=== PATIENT | female | born 1990 | race Caucasian/White ===

== ENCOUNTER 2023-10-29 11:49 | Outpatient (CLI) | payer OTHER, SELFPAY ==
[2023-10-30 00:44] LABS: Beta HCG Quantitative 5.71 mIU/ML
== END 2023-10-29 11:50 | disposition home or self-care (01) ==
PROVIDERS: Visit Provider Obstetrics & Gynecology
DX: N92.6 Irregular menstruation, unspecified (principal)
CPT/HCPCS: 36415; 84702

== ENCOUNTER 2023-10-31 09:51 | Outpatient (CLI) | payer OTHER, SELFPAY ==
[2023-10-31 11:06] LABS: Beta HCG Quantitative < 2.39 mIU/ML
== END 2023-10-31 09:52 | disposition home or self-care (01) ==
LOC: ANHLAB 09:53
PROVIDERS: Visit Provider Obstetrics & Gynecology
DX: N92.6 Irregular menstruation, unspecified (principal)
CPT/HCPCS: 36415; 84702

== ENCOUNTER 2024-05-27 10:17 | Outpatient (CLI) | payer OTHER, SELFPAY ==
[2024-05-27 11:23] LABS: Carcinoembryonic Antigen 0.9 ng/mL (0.0-3.0)
[2024-05-27 11:33] LABS: HIV 1/2 Ab P24 Ag Result Negative (Negative)
[2024-05-27 12:58] LABS: Hepatitis B Surface Antigen Negative (Negative); Rubella IgG Antibody 43.8 IU/ML
[2024-05-27 19:20] LABS: Rapid Plasma Reagin Non-Reactive (NonReactive)
== END 2024-05-27 10:18 | disposition home or self-care (01) ==
LOC: ANHLAB 10:17
PROVIDERS: Visit Provider Obstetrics & Gynecology
DX: N91.2 Amenorrhea, unspecified (principal); Z34.81 Encounter for supervision of other normal pregnancy, first trimester
CPT/HCPCS: 36415; 82378; 86592; 86703; 86747; 86762; 86787; 86850; 86900; 86901; 87077; 87086; 87186; 87340; G0432

== ENCOUNTER 2024-07-25 06:53 | Outpatient (CLI) | payer OTHER, SELFPAY ==
[2024-07-25 19:44] LABS: Basophils Absolute Auto 0.1 K/mm3 (0.0-0.1); Basophils Percent Auto 0.9 % (0.2-1.2); Eosinophils Absolute Auto 0.3 K/mm3 (0-0.3); Hematocrit 34.6 % (37.0-47.0); Hemoglobin 11.2 g/dL (12.0-15.0); Immature Granulocyte Absolute 0.04 K/mm3 (0.00-0.031); Immature Granulocyte Percent A 0.5 % (0-0.5); Lymphocytes Absolute Auto 1.35 K/mm3 (0.9-3.2); Lymphocytes Percent Auto 15.6 % (18.3-44.2); Mean Corpuscular HGB Conc 32.4 g/dl (32-36); Mean Corpuscular Hemoglobin 31.8 pg (26-34); Mean Corpuscular Volume 98.3 fl (80-100); Monocytes Absolute Auto 0.7 K/mm3 (0.1-0.6); Monocytes Percent Auto 8.2 % (2.6-8.5); Neutrophils Absolute Auto 6.2 K/mm3 (1.3-6.7); Neutrophils Percent Auto 71.8 % (45.5-73.1); Platelet Count Result 172 k/mm3 (150-375); Red Blood Count 3.52 M/mm3 (4.2-5.4); Red Cell Distribution Width 13.7 % (11.5-14.5); White Blood Count 8.7 K/mm3 (4.5-10.0)
[2024-07-25 20:31] LABS: Glucose 1 Hour PP 50gm Dose 81 mg/dL
[2024-07-25 21:15] LABS: HIV 1/2 Ab P24 Ag Result Negative (Negative)
[2024-07-26 13:28] LABS: RPR Screen NON-REACTIVE (NON-REACTIVE)
== END 2024-07-25 06:54 | disposition home or self-care (01) ==
LOC: ANHBWCLAB 06:55
PROVIDERS: Visit Provider Obstetrics & Gynecology
DX: Z34.90 Encounter for supervision of normal pregnancy, unspecified, unspecified trimester (principal)
CPT/HCPCS: 36415; 82947; 85025; 86592; 86703; G0432

== ENCOUNTER 2024-09-21 19:14 | Emergency (ER) | payer OTHER, SELFPAY ==
--- NOTE | ~2024-09-21 | US_ITS ---
BILATERAL LOWER EXTREMITY VENOUS ULTRASOUND Ordering provider: Mia Guzman PA-C History: . edema, . Comparison: None. FINDINGS: RIGHT LOWER EXTREMITY VEINS: --COMMON FEMORAL: Patent and free of thrombus. Normal compressibility, phasic flow and augmentation. --PROXIMAL SUPERFICIAL FEMORAL: Patent and free of thrombus. Normal compressibility, phasic flow and augmentation. --DISTAL SUPERFICIAL FEMORAL: Patent and free of thrombus. Normal compressibility, phasic flow and au gmentation. --POPLITEAL: Patent and free of thrombus. Normal compressibility, phasic flow and augmentation. --POSTERIOR TIBIAL: Patent and free of thrombus. Normal compressibility, phasic flow and augmentation . LEFT LOWER EXTREMITY VEINS: --COMMON FEMORAL: Patent and free of thrombus. Normal compressibility, phasic flow and augmentation. --PROXIMAL SUPERFICIAL FEMORAL: Patent and free of thrombus. Normal compressibility, phasic flow and augmentation. --DISTAL SUPERFICIAL FEMORAL: Patent and free of thrombus. Normal compressibility, phasic flow and au gmentation. --POPLITEAL: Patent and free of thrombus. Normal compressibility, phasic flow and augmentation. --POSTERIOR TIBIAL: Patent and free of thrombus. Normal compressibility, phasic flow and augmentation . IMPRESSION: Negative bilateral lower extremity venous US. No deep vein thrombosis. Reviewed, dictated and finalized at location A.
[2024-09-21 19:16] VITALS: BP 133/87; PULSE 84; RESP 18; TEMP 36.6; O2SAT 99
--- OUTSIDE RECORDS SUMMARY | 2024-09-21 19:16 | XMS_ITS | Encounter Summary ---
Author Organization [employer] Address 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
--- OUTSIDE RECORDS SUMMARY | 2024-09-21 19:16 | XMS_ITS | Encounter Summary ---
Author Organization [employer] Address [address] [place] [address] Care Team Providers Care Lock And Dam Equipment Repairer Name Role Phone Nallely Echavarria MD Primary Care Provider +1- [phone] Encounter Details Date Type Department Care Team (Latest Contact Info) Description 06/20/1999 Outpatient Historical [facility] Kal Sampson MD [address] [place] [phone] Closed fracture of olecranon process of ulna (Primary Dx) Social History Tobacco Use Types Packs/Day Years Used Date Smoking Tobacco: Never Assessed Comments Unknown Sex and Gender Information Value Date Recorded Sex Assigned at Not on file Legal Sex Female 4:47 AM OPERATIONS MANAGER Gender Identity Not on file Sexual Orientation Not on file documented as of this encounter Plan of Treatment Not on file documented as of this encounter Visit Diagnoses Diagnosis Closed fracture of olecranon process of ulna- Primary documented in this encounter Care Teams Lock And Dam Equipment Repairer Relationship Specialty Start Date End Date Nallely Echavarria MD PCP - General Family Practice 02/26/19 documented as of this encounter
--- OUTSIDE RECORDS SUMMARY | 2024-09-21 19:16 | XMS_ITS | Clinical Summary ---
Author Organization [facility] Medical Office [facility] Address [address] [place] [address] Care Team Providers Care Cooling Pan Tender Name Role Phone Nallely Echavarria MD Primary Care Provider +1- [phone] Allergies Active Allergy Reactions Criticality Noted Date Comments Amoxicillin-Pot Clavulanate Nausea and Vomiting Medium 08/26/2011 Medications multivit [id number] 6-dha (Prenate DHA) 28 mg iron-1 mg -300 mg Capsule Take by mouth. Active Breast Pump DeviceIndicatio ns:Lactating mother Double electric breast pump. TEJAS 04/17/21. To use indefinitely, as long as . ICD-10 Z39.1 1 Device 01/01/2021 Active docusate sodium (COLACE) 100 mg capsule Take 1 Capsule (100 mg) by mouth 2 times daily. 60 Capsule 2 04/13/2021 9:09 AM SENIOR PHARMACY TECHNICIAN 04/12/2021 Active Active Problems Problem Noted Date Diagnosed Date Encounter for elective induction of labor 2020 Tobacco use 01/22/2016 Abnormal Pap smear of cervix 03/28/2015 Overview (03/28/2015): 02/2015: LGSIL IUD (intrauterine device) in place 03/23/2015 Overview (03/23/2015): Mirena placed 03/23/2015 Acute nonintractable headache Resolved Problems Problem Noted Date Diagnosed Date Resolved Date Supervision of other normal 06/26/2014 03/21/2015 Acalculous cholecystitis 08/28/2011 Tonsillitis 08/07/2011 09/17/2011 Assessment & Plan (08/07/2011 1:15 PM CDT): DDx: Bacterial vs viral. No evidence of peritonsillar abscess on exam. Discussed symptomatic treatment for acute pharyngitis: - Encourage rest and fluids (try cool and soft, foods and drinks). - Salt water gargle, throat lozenges, chloraseptic spray prn. - Acetaminophen (Tylenol) or ibuprofen (Motrin, Advil) for fever or discomfort. - Place a vaporizer or humidifier in [facility]'s room (such as the [employer] steam vaporizer). - Elevate the head of Ruth's bed by placing an extra pillow or two under her head. - Ruth should blow her nose frequently to decrease post-nasal drainage. - Household members should avoid sharing cups and eating utensils and wash hands frequently. - Trial of Claritin D 12 hour. A rapid strep test was normal (faint positive only) at [facility]. A throat culture was sent to the [facility] lab for verification. Call for persistent fever, worsening odynophagia/difficulty swallowing fluids or no improvement on antibiotics. Consider EBV titers, CMV titers, mumps titers, ASO, CBC with diff and CMP if persistent symptoms. Nasal congestion with rhinorrhea 08/07/2011 09/17/2011 Assessment & Plan (08/07/2011 11:53 AM CDT): Trial of Claritin D 12 hour. Left acute otitis media 08/07/201108/24 Assessment & Plan (08/07/2011 12:10 PM CDT): Discussed treatment for otitis media or middle ear infection : - Complete all antibiotics as prescribed. - Acetaminophen/ibuprofen prn fever or discomfort (only acetaminophen if less than 6 months old). - Analgesic ear drops (Auralgan otic) as directed (except if ear drainage or tympanostomy tubes present). Medication intolerance 08/07/201101/21 Overview (08/07/2011): 08/07/11 Augmentin intolerance (see ED note). Acute pharyngitis 07/22/2011 08/07/2011 Assessment & Plan (07/22/2011 5:40 PM SENIOR PHARMACY TECHNICIAN): Discussed symptomatic treatment for acute pharyngitis: - Encourage rest and fluids (try cool and soft, foods and drinks). - Salt water gargle, throat lozenges, chloraseptic spray prn. - Acetaminophen (Tylenol) or ibuprofen (Motrin, Advil) for fever or discomfort. - Place a vaporizer or humidifier in Ruth's room (such as the [employer] steam vaporizer). - Elevate the head of Ruth's bed by placing an extra pillow or two under her head. - Ruth should blow her nose frequently to decrease post-nasal drainage. - Household members should avoid sharing cups and eating utensils and wash hands frequently. May try Claritin D 12-hour BID x 7 days for symptoms. A rapid strep test was normal at [facility]. A throat culture was sent to the [facility] lab for verification. Routine or child health check 11/01/2010 07/22/2011 Immunizations Immunization Administration Dates Next Due (ADACEL/BOOSTRIX)(10 YR UP) TDAP VACCINE, 0.5ML, IM 02/14/2021,11/15/2014,11/01/2010 (GARDASIL)(9-45 YRS) HUMAN PAPILLOMAVIRUS VACCINE, TYPES 6, 11, 16, 18, QUADRIVALENT (4VHPV), 3 DOSE, IM 01/18/2013,11/01/2010 (HAVRIX/VAQTA)(19 YRS UP) HE PATITIS A VACCINE ADULT DOSAGE 1 ML IMM 03/27/2014,01/18/2013 (INFANRIX)(6 WKS-6 YRS) DIPT HERIA, TETANUS TOXOIDS, AND ACCELLULAR PERTUSSIS VACCINE (DTAP), 0.5 ML IM 01/20/1997,07/09/1993,07/18/1992,05/03,02/21/1992 (IPOL)(6 WKS AND UP) POLIOVI HUSSAIN VACCINE, INACTIVATED (IPV), 3 DOSE, SUBCUT OR IM 07/09/1993,07/18/1992,05/03/1992,02/20 (M-M-R II/PRIORIX)(12 MO UP) MEASLES, MUMPS AND RUBELLA VIRUS VACCINE, 0.5 ML IM/SUBCUT 01/20/1997,04/10/1993 (PFIZER)(12 YR UP) COVID-19 VACCINE - EMERGENCY USE AUTHORIZATION, MRNA, [id number](PF) 30 MCG/0.3 ML IM SUSP 01/22/2021,01/01/2021 (TDVAX)(7 YRS UP) TETANUS AN D DIPHTHERIA TOXOIDS, ADSORBED (2 LF OF TETANUS TOXOID AND 2 LF OF DIPHTHERIA TOXOID), 0.5ML (PF), IM 05/21/2006 (VARIVAX)(12 MOS UP)VARICELL A VIRUS VACCINE (PF) 0.5 ML, SUB CUT 03/27/2014,02/10/2013 HIB, Unspecified Formulation 04/10/1993, 07/18/1992,05/03/1992,02/20 Hepatitis B Vaccine 07/18/1992,02/21/1992,1991 INFLUENZA VACCINE QUADRIVALE NT 3 YR UP PF IM 02/12/2016 INFLUENZA VACCINE QUADRIVALE NT 6 MOS UP PF IM 02/14/2021 Influenza Seasonal Unspecifi ed Formulation IM 03/24/2022,03/23/2020,02/25/2019,04/05,02/27/2017 Meningococcal A Conjugate Vaccine IM 11/01/2010 Skin Test TB 01/18/2013 Family History Medical History Relation Name Comments Healthy Father kg High Cholesterol Maternal Grandfather Hypertension Maternal Grandfather on meds Arthritis-rheumatoid Maternal Grandmother on meds Thyroid Disease Maternal Grandmother mass removed Healthy Mother cassidy Skin Cancer Neg Hx Relation Name Status Comments Brother karl sade Alive Father kg Other Maternal Grandfather Alive Maternal Grandmother Alive Mother cassidy Alive Paternal Grandmother Alive Sister none Social History Tobacco Use Types Packs/Day Years Used Date Smoking Tobacco: Former Cigarettes 0.3 1 Smokeless Tobacco: Never Tobacco Cessation:Ready to Q uit: No Alcohol Use Standard Drinks/Week Comments Not Currently 4 (1 standard drink = 0.6 oz pure alcohol) social, when goes out with friends Comments No Sex and Gender Information Value Date Recorded Sex Assigned at Not on file Legal Sex Female 4:47 AM SENIOR PHARMACY TECHNICIAN Gender Identity Not on file Sexual Orientation Not on file Occupation Industry Job Start Date Job End Date Not on file Not on file Not on file Not on file Not on file Not on file Not on file Not on file Last Filed Vital Signs Vital Sign Reading Time Taken Comments Blood Pressure 100/62 06/03/2021 9:04 AM SENIOR PHARMACY TECHNICIAN Pulse 82 04/13/2021 9:02 AM SENIOR PHARMACY TECHNICIAN Temperature 36.9 C (98.5 F) 04/13/2021 9:02 AM SENIOR PHARMACY TECHNICIAN Respiratory Rate 16 06/03/2021 9:04 AM SENIOR PHARMACY TECHNICIAN Oxygen Saturation 97% 04/12/2021 8:15 PM SENIOR PHARMACY TECHNICIAN Inhaled Oxygen Concentration - - Weight 62.2 kg (137 lb 3.2 oz) 06/03/2021 9:04 A M SENIOR PHARMACY TECHNICIAN Height 167.6 cm (5' 6 ) 06/03/2021 9:04 AM SENIOR PHARMACY TECHNICIAN Body Mass Index 22.14 06/03/2021 9:04 AM SENIOR PHARMACY TECHNICIAN Plan of Treatment Health Maintenance Due Date Last Done Comments HPV VACCINES (3 - 3-dose series) 04/12/2013 01/19/20 13, 11/01/2010 HPV/Cotest (21-29) 05/15/2021 05/15/2016, 1 , 03/01/2014, Additional history exists HPV/Cotest (30-65) 12/23/2021 05/15/2016, 1 , 03/01/2014, Additional history exists CERVICAL CANCER SCREENING 09/08/2023 PAP SMEAR 09/08/2023 09/07/2020, 04/25, 03/21/2015, Additional history exists INFLUENZA VACCINE (#1) 2023 , 02/14/2021, 03/23/2020, Additional history exists COVID-19 Vaccine (3 - 2023-2 5 season) 2024 01/22/2021, 01/01/2021 DTAP/TDAP/TD VACCINES (9 - T d or Tdap) 02/14/2031 02/14/2021, 11/15/2014, 11/01/2010, Additional history exists HEPATITIS B VACCINES Completed 07/18/1992, 02/21/1992, 1991 Procedures Procedure Name Priority Date/Time Associated Diagnosis Comments CERV/VAG CYTO AGE BASED SCREEN PAP W CT/NG, TRICH Routine 09/07/2020 9:09 AM CDT CERV/VAG CYTO SCREEN PAP RLFX HPV Routine 05/15/2016 2:13 PM SENIOR PHARMACY TECHNICIAN Encounter for well woman exam from Last 3 Months or Most Recently Relevant to Health Maintenance Results * CERV/VAG CYTO AGE BASED SCREEN PAP W CT/NG, TRICH (09/07/2020 9:09 AM CDT) CASE REPORT Gynecologic Cytology Report Case: [id number] Authorizing Provider: aLura Monroy DO Collected: 09/07/2020 09:09 AM Ordering Location: [facility] Received: 09/07/2020 03:[address] First Screen: Veronica Hope Specimen: LB PAP TP PROT, Endocervix 09/17/2020 8:29 AM CDT [facility] Paint Technician Specimen Adequacy Satisfactory for evaluation, endocervical/trans formation zone component absent/insufficien t 09/17/2020 8:29 AM CDT [facility] Paint Technician Interpretation Negative for intraepithelial lesion or malignancy 09/17/2020 8:29 AM CDT [facility] Verified by Veronica Hope on 09/17/2020 at 0829 CDT Paint Technician Educational Note 09/17/2020 8:29 AM CDT [facility] Comment:The Pap test is a sc reening test used to aid in the detection of cervical cancer and its precursors. It should not be the sole means by which malignant and premalignant lesions are diagnosed. Both false negative and false positive results may occur. Results must be interpreted in the context of historic and current clinical information. EMBEDDED IMAGE 09/17/2020 8:29 AM CDT [facility] Genital SWAB OF ENDOCERVIX / Unknown Collection / Unknown 09/07/2020 9:09 AM CDT 09/07/2020 3:25 PM CDT Laura J Monroy DO PATHOLOGY/CYTOLOGY ORDERABL ES Final Result [facility] [place]# [id number] [place] [address] * CERV/VAG CYTOPATH, THIN PREP IMAGR RFLX HPV (05/15/2016 2:13 PM SENIOR PHARMACY TECHNICIAN) CLINICAL INFORMATION SEE COMMENT 05/28/2016 1:00 PM SENIOR PHARMACY TECHNICIAN [facility] Comment:Information not prov ided LAST MENSTRUAL PERIOD SEE COMMENT 05/28/2016 1:00 PM SENIOR PHARMACY TECHNICIAN [facility] Comment:Information not prov ided PREV PAP: SEE COMMENT 05/28/2016 1:00 PM SENIOR PHARMACY TECHNICIAN [facility] Comment:Information not prov ided PREV BX: SEE COMMENT 05/28/2016 1:00 PM SENIOR PHARMACY TECHNICIAN [facility] Comment:Information not prov ided SOURCE Endocervix 05/28/2016 1:00 PM SENIOR PHARMACY TECHNICIAN [facility] ADEQUACY: SEE COMMENT 05/28/2016 1:00 PM SENIOR PHARMACY TECHNICIAN [facility] Comment: Satisfactory for evaluation. Endocervical/transformation zone component present. Age and/or menstrual status not provided PAP INTERP SEE COMMENT 05/28/2016 1:00 PM SENIOR PHARMACY TECHNICIAN [facility] Comment: Negative for intraepithelial lesion or malignancy. Reactive cellular changes associated with repair CYTOLOGY INFECTION SEE COMMENT 05/28 1:00 PM SENIOR PHARMACY TECHNICIAN [facility] Comment: Shift in vaginal francisca suggestive of bacterial vaginosis. COMMENT SEE COMMENT 05/28/2016 1:00 PM SENIOR PHARMACY TECHNICIAN [facility] Comment: This Pap test has been evaluated with computer assisted technology. SAXOPHONE PLAYER: SEE COMMENT 2016 1:00 PM SENIOR PHARMACY TECHNICIAN [facility] Comment: [place], [place](ASCP) CT screening location: [place] [address] [place] [address] PATHOLOGIST SEE COMMENT 05/28/2016 1:00 PM SENIOR PHARMACY TECHNICIAN [facility] Comment: Trent Fuller M.D., Board Certified in Anatomic Pathology and Cytopathology. (electronic signature) Genital SWAB OF ENDOCERVIX / Unknown Collection / Unknown 05/15/2016 2:13 PM SENIOR PHARMACY TECHNICIAN 05/15/2016 4:23 PM SENIOR PHARMACY TECHNICIAN Narrative [facility] - 05/28/2016 1:00 PM SENIOR PHARMACY TECHNICIAN Performing Organization Information: Site ID: SL Name: [facility] Address: [address] [place] [address] Director: Florence Donahue MD Gaby Florez SALVAGE MEND WORKER PATHOLOGY/CYTOLOGY ORDERABLES Final Result [facility] from Last 3 Months or Most Recently Relevant to Health Maintenance Insurance [facility] OPTIONS PPO [id number] [place] [address] RX [employer] RX Member Subscriber Plan / Payer (Ef fective 2021-Present) Name:Ruth Trimble Relation to Subscriber:Self Name:Ruth Trimble Subscriber ID:Not on file Payer ID:Not on file Type:RX Commercial Address: [place] Advance Directives For more information, please contact: [phone] * Full Code (Latest Code Status on File) Date Activated Date Inactivated Comments 04/11/2021 4:27 PM 04/13/2021 3:37 PM * Full Code Date Activated Date Inactivated Comments 10/26/2020 7:05 PM 10/26/2020 11:29 PM * Full Code Date Activated Date Inactivated Comments 01/31/2015 6:41 PM 02/02/2015 4:14 PM * Full Code Date Activated Date Inactivated Comments 01/31/2015 2:57 PM 01/31/2015 6:41 PM * Full Code Date Activated Date Inactivated Comments 09/02/2011 3:33 PM 09/03/2011 1:18 AM Care Teams Cooling Pan Tender Relationship Specialty Start Date End Date Nallely Echavarria MD PCP - General Family Practice 02/26/19
--- OUTSIDE RECORDS SUMMARY | 2024-09-21 19:16 | XMS_ITS | Encounter Summary ---
Author Organization [facility] Address [address] [place] [address] Care Team Providers Care Professor Of Environmental Studies Name Role Phone Nallely Echavarria MD Primary Care Provider +1- [phone] Reason for Visit * Reason Onset Date Comments Follow Up 02/13/2015 see note Encounter Details Date Type Department Care Team ([facility] st Contact Info) Description 02/13/2015 Telephone [place] [id number] [place] [phone] Whit Boss RN Follow Up (see note) Social History Tobacco Use Types Packs/Day Years Used Date Smoking Tobacco: Never Smokeless Tobacco: Never Alcohol Use Standard Drinks/Week Comments Yes 0 (1 standard drink = 0.6 oz pure alcohol) social, when goes out with friends Comments No Sex and Gender Information Value Date Recorded Sex Assigned at Not on file Legal Sex Female 4:47 AM EXPLOSIVE OPERATOR BOMB Gender Identity Not on file Sexual Orientation Not on file Occupation Industry Job Start Date Job End Date Not on file Not on file Not on file Not on file Not on file Not on file Not on file Not on file documented as of this encounter Miscellaneous Notes * Note - Whit Boss RN - 02/13/2015 11:19 AM CDT Breast feeding follow-up phone call made to 's mother. No answer and left a message with the phone number if questions come up. documented in this encounter Plan of Treatment Not on file documented as of this encounter Visit Diagnoses Not on filedocumented in this encounter Care Teams Professor Of Environmental Studies Relationship Specialty Start Date End Date Nallely Echavarria MD PCP - General Family Practice 02/26/19 documented as of this encounter
--- OUTSIDE RECORDS SUMMARY | 2024-09-21 19:16 | XMS_ITS | Encounter Summary ---
Author Organization [facility] Address [address] [place] [address] Care Team Providers Care Adoption Coordinator Name Role Phone Nallely Echavarria MD Primary Care Provider +1- [phone] Encounter Details Date Type Department Care Team (Late st Contact Info) Description 01/01/2016 Lab Requisition [facility] [address] [place] [phone] Geremias White MD NO ADDRESS ON FILE Social History Tobacco Use Types Packs/Day Years Used Date Smoking Tobacco: Never Smokeless Tobacco: Never Alcohol Use Standard Drinks/Week Comments Yes 0 (1 standard drink = 0.6 oz pure alcohol) social, when goes out with friends Comments No Sex and Gender Information Value Date Recorded Sex Assigned at Not on file Legal Sex Female 4:47 AM BARREL LOADER Gender Identity Not on file Sexual Orientation Not on file Occupation Industry Job Start Date Job End Date Not on file Not on file Not on file Not on file Not on file Not on file Not on file Not on file documented as of this encounter Plan of Treatment Not on file documented as of this encounter Procedures Procedure Name Priority Date/Time Associated Diagnosis Comments HEPATITIS B SURFACE AB, QUANT Routine 01/01/2016 11:00 AM CDT RUBEOLA IGG Routine 01/01/2016 11:00 AM CDT RUBELLA IGG Routine 01/01/2016 11:00 AM CDT MUMPS IGG ANTIBODY Routine 01/01/2016 11 :00 AM CDT documented in this encounter Results * RUBEOLA IGG (01/01/2016 11:00 AM CDT) RUBEOLA IGG Positive 01/03/2016 10:44 AM CDT [facility] Comment: Results suggest response to immunization or prior exposure to the virus. REFERENCE VALUE Vaccinated: Positive (>=1.1 AI) Unvaccinated: Negative (<=0.8 AI) RUBEOLA IGG INDEX 1.2 01/03/2016 10:44 AM CDT [facility] Comment: Test Performed by: [place] [address] Lab Manager: Jake Peters II, M.D., Ph.D. Blood specimen (specimen) 01/01/2016 11:00 AM CDT 01/01/2016 4:08 PM CDT Geremias White MD CHEMISTRY ORDERABLES F inal Result Performing Organization Address City/[facility]/ZIP Co de Phone Number [facility] * RUBELLA IGG (01/01/2016 11:00 AM CDT) RUBELLA IGG IMMUNE Immune - Positive 01/01/2016 8:[address] [facility] [employer] [facility] Blood Venipuncture - L ab Collect / Unknown 01/01/2016 11:00 AM CDT 01/01/2016 4:[address] [facility] [employer] [facility] - 01/01/2016 8:07 PM CDT A positive result suggests response to immunization or prior exposure to the virus. Geremias White MD CHEMISTRY ORDERABLES F inal Result Performing Organization Address City/[facility]/ZIP Co de Phone Number [facility] [employer] [facility] CLIA# [id number] [address] [facility] [place] [address] * MUMPS IGG ANTIBODY (01/01/2016 11:00 AM CDT) MUMPS IGG AB Positive 01/03/2016 10:44 AM CDT [facility] Comment: Results suggest response to immunization or prior exposure to the virus. REFERENCE VALUE Vaccinated: Positive (>=1.1 AI) Unvaccinated: Negative (<=0.8 AI) MUMPS IGG INDEX 1.5 01/03/2016 10:44 AM CDT [facility] Comment: Test Performed by: [place] [address] Lab Manager: Jake Peters II, M.D., Ph.D. Blood specimen (specimen) 01/01/2016 11:00 AM CDT 01/01/2016 4:08 PM CDT us Geremias White MD CHEMISTRY ORDERABLES F inal Result [facility] * (ABNORMAL) HEPATITIS B SURFACE AB, QUANT (01/01/2016 11:00 AM CDT) Pathologist [facility] HEPATITIS B SURF AB,QN <4.0 mlU/mL 01/01/2016 6:[address] [facility] [employer] [facility] HEPATITIS B SURFACE AB INTERP Non-reacti ve(A) See Interp 01/01/2016 6:34 PM CDT [facility] Blood 01/01/2016 11:0 0 AM CDT 01/01/2016 4:[address] [facility] - 01/01/2016 6:34 PM CDT Patient does not have immunity to Hepatitis B virus. This assay is used to determine immune status to Hepatitis B as greater than or equal to 10 mIU/mL as per CDC guidelines (MMWR:vol 55: RR-16, 2006). us Geremias White MD CHEMISTRY ORDERABLES F inal Result Performing Organization Address City/State/[facility] Co de Phone Number [facility]# [id number] [address] [place] [address] documented in this encounter Visit Diagnoses Not on filedocumented in this encounter Care Teams Adoption Coordinator Relationship Specialty Start Date End Date Nallely Echavarria MD PCP - General Family Practice 02/26/19 documented as of this encounter
--- OUTSIDE RECORDS SUMMARY | 2024-09-21 21:44 | XMS_ITS | Encounter Summary ---
Author Organization [facility] Address [address] [place] [address] Care Team Providers Care Dispatch Associate Name Role Phone Nallely Echavarria MD Primary Care Provider +1- [phone] Encounter Details Date Type Department Care Team (Late st Contact Info) Description 01/01/2016 Lab Requisition [facility] [address] [place] [id number] Geremias White MD NO ADDRESS ON FILE Social History Tobacco Use Types Packs/Day Years Used Date Smoking Tobacco: Never Smokeless Tobacco: Never Alcohol Use Standard Drinks/Week Comments Yes 0 (1 standard drink = 0.6 oz pure alcohol) social, when goes out with friends Comments No Sex and Gender Information Value Date Recorded Sex Assigned at Not on file Legal Sex Female 4:47 AM BILINGUAL NANNY Gender Identity Not on file Sexual Orientation [...] RUBEOLA IGG Positive 01/03/2016 10:44 AM CDT [facility] Comment: Results suggest response to immunization or prior exposure to the virus. REFERENCE VALUE Vaccinated: Positive (>=1.1 AI) Unvaccinated: Negative (<=0.8 AI) RUBEOLA IGG INDEX 1.2 01/03/2016 10:44 AM CDT [facility] Comment: Test Performed by: [place] [address] Tent Assembler: Jake Peters II, M.D., Ph.D. Blood specimen (specimen) 01/01/2016 11:00 AM CDT 01/01/2016 4:08 PM CDT Geremias White MD CHEMISTRY ORDERABLES F inal Result Performing Organization Address City/[facility]/ZIP Co de Phone Number [facility] * RUBELLA IGG (01/01/2016 11:00 AM CDT) RUBELLA IGG IMMUNE Immune - Positive 01/01/2016 8:07 PM CDT [facility] [employer] [facility] Blood Venipuncture - L ab Collect / Unknown 01/01/2016 11:00 AM CDT 01/01/2016 4:08 PM CDT Narrative [facility] [employer] [facility] - 01/01/2016 8:07 PM CDT A positive result suggests response to immunization or prior exposure to the virus. Geremias White MD CHEMISTRY ORDERABLES F inal Result Performing Organization Address City/[facility]/ZIP Co de Phone Number [facility] [employer] [facility] CLIA# [id number] [address] [facility] [place] [address] * MUMPS IGG ANTIBODY (01/01/2016 11:00 AM CDT) MUMPS IGG AB Positive 01/03/2016 10:44 AM CDT [facility] Comment: Results suggest response to immunization or prior exposure to the virus. REFERENCE VALUE Vaccinated: Positive (>=1.1 AI) Unvaccinated: Negative (<=0.8 AI) MUMPS IGG INDEX 1.5 01/03/2016 10:44 AM CDT [facility] Comment: Test Performed by: [place] [address] Tent Assembler: Jake Peters II, M.D., Ph.D. Blood specimen (specimen) 01/01/2016 11:00 AM CDT 01/01/2016 4:08 PM CDT us Geremias White MD CHEMISTRY ORDERABLES F inal Result [facility] * (ABNORMAL) HEPATITIS B SURFACE AB, QUANT (01/01/2016 11:00 AM CDT) Pathologist [facility] HEPATITIS B SURF AB,QN <4.0 mlU/mL 01/01/2016 6:34 PM CDT [facility] [employer] [facility] HEPATITIS B SURFACE AB INTERP Non-reacti ve(A) See Interp 01/01/2016 6:34 PM CDT [facility] Blood 01/01/2016 11:0 0 AM CDT 01/01/2016 4:08 PM CDT Narrative [facility] LABORATORY [facility] - 01/01/2016 6:34 PM CDT Patient does not have immunity to Hepatitis B virus. This assay is used to determine immune status to Hepatitis B as greater than or equal to 10 mIU/mL as per CDC guidelines (MMWR:vol 55: RR-16, 2006). us Geremias White MD CHEMISTRY ORDERABLES F inal Result Performing Organization Address City/State/[facility] Co de Phone Number [facility]# [id number] [address] [place] [address] documented in this encounter Visit Diagnoses Not on filedocumented in this encounter Care Teams Dispatch Associate Relationship Specialty Start Date End Date Nallely Echavarria MD PCP - General Family Practice 02/26/19 documented as of this encounter
--- OUTSIDE RECORDS SUMMARY | 2024-09-21 21:44 | XMS_ITS | Clinical Summary ---
Author Organization [facility] Address [address] [place] [address] Care Team Providers Care Computer Science Teacher Name Role Phone Nallely Echavarria MD Primary Care Provider [phone]- [phone] Allergies Active Allergy Reactions Criticality Noted Date Comments Amoxicillin-Pot Clavulanate Nausea and Vomiting Medium 08/26/2011 Medications multivit [id number] 6-dha (Prenate DHA) 28 mg iron-1 mg -300 mg Capsule Take by mouth. Active Breast Pump DeviceIndicatio ns:Lactating mother Double electric breast pump. TEJAS 04/17/21. To use indefinitely, as long as . ICD-10 Z39.1 1 Device 01/01/2021 Active docusate sodium (COLACE) 100 mg capsule Take 1 Capsule (100 mg) by mouth 2 times daily. 60 Capsule 2 04/13/2021 9:09 AM MIXER LEVER OPERATOR 04/12/2021 Active Active Problems Problem Noted Date [...] - Place a vaporizer or humidifier in [facility]'s room (such as the Imalogix steam vaporizer). - Elevate the head of Ruth's bed by placing an extra pillow or two under her head. - Ruth should blow her nose frequently to decrease post-nasal drainage. - Household members should avoid sharing cups and eating utensils and wash hands frequently. - Trial of Claritin D 12 hour. A rapid strep test was normal (faint positive only) at [facility]. A throat culture was sent to the [facility] lab for verification. Call for persistent fever, [...] 08/07/2011 Assessment & Plan (07/22/2011 5:40 PM MIXER LEVER OPERATOR): Discussed symptomatic treatment for acute pharyngitis: - Encourage rest and fluids (try cool and soft, foods and drinks). - Salt water gargle, throat lozenges, chloraseptic spray prn. - Acetaminophen (Tylenol) or ibuprofen (Motrin, Advil) for fever or discomfort. - Place a vaporizer or humidifier in Ruth's room (such as the Imalogix steam vaporizer). - Elevate the head of Ruth's bed by placing an extra pillow or two under her head. - Ruth should blow her nose frequently to decrease post-nasal drainage. - Household members should avoid sharing cups and eating utensils and wash hands frequently. May try Claritin D 12-hour BID x 7 days for symptoms. A rapid strep test was normal at [facility]. A throat culture was sent to the [facility] lab for verification. Routine or child health [...] COVID-19 VACCINE - EMERGENCY USE AUTHORIZATION, MRNA, [id number](PF) 30 MCG/0.3 ML IM SUSP 01/22/2021,01/01/2021 (TDVAX)(7 [...] on file Legal Sex Female 4:47 AM MIXER LEVER OPERATOR Gender Identity Not on file Sexual Orientation Not on file Occupation Industry Job Start Date Job End Date Not on file Not on file Not on file Not on file Not on file Not on file Not on file Not on file Last Filed Vital Signs Vital Sign Reading Time Taken Comments Blood Pressure 100/62 06/03/2021 9:04 AM MIXER LEVER OPERATOR Pulse 82 04/13/2021 9:02 AM MIXER LEVER OPERATOR Temperature 36.9 C (98.5 F) 04/13/2021 9:02 AM MIXER LEVER OPERATOR Respiratory Rate 16 06/03/2021 9:04 AM MIXER LEVER OPERATOR Oxygen Saturation 97% 04/12/2021 8:15 PM MIXER LEVER OPERATOR Inhaled Oxygen Concentration - - Weight 62.2 kg (137 lb 3.2 oz) 06/03/2021 9:04 A M MIXER LEVER OPERATOR Height 167.6 cm (5' 6 ) 06/03/2021 9:04 AM MIXER LEVER OPERATOR Body Mass Index 22.14 06/03/2021 9:04 AM MIXER LEVER OPERATOR Plan of Treatment Health Maintenance Due Date [...] PAP RLFX HPV Routine 05/15/2016 2:13 PM MIXER LEVER OPERATOR Encounter for well woman exam from Last 3 Months or Most Recently Relevant to Health Maintenance Results * CERV/VAG CYTO AGE BASED SCREEN PAP W CT/NG, TRICH (09/07/2020 9:09 AM CDT) CASE REPORT Gynecologic Cytology Report Case: [id number] Authorizing Provider: Laura Monroy DO Collected: 09/07/2020 09:09 AM Ordering Location: [facility] Received: 09/07/2020 03:[address] First Screen: Veronica Hope Specimen: LB PAP TP PROT, Endocervix 09/17/2020 8:29 AM CDT [facility] Chiropractic Neurologist Specimen Adequacy Satisfactory for evaluation, endocervical/trans formation zone component absent/insufficien t 09/17/2020 8:29 AM CDT [facility] Chiropractic Neurologist Interpretation Negative for intraepithelial lesion or malignancy 09/17/2020 8:29 AM CDT [facility] Verified by Veronica Hope on 09/17/2020 at 0829 CDT Chiropractic Neurologist Educational Note 09/17/2020 8:29 AM CDT [facility] Comment:The Pap test is a sc reening test used to aid in the detection of cervical cancer and its precursors. It should not be the sole means by which malignant and premalignant lesions are diagnosed. Both false negative and false positive results may occur. Results must be interpreted in the context of historic and current clinical information. EMBEDDED IMAGE 09/17/2020 8:29 AM CDT [facility] Genital SWAB OF ENDOCERVIX / Unknown Collection / Unknown 09/07/2020 9:09 AM CDT 09/07/2020 3:25 PM CDT Laura J Monroy DO PATHOLOGY/CYTOLOGY ORDERABL ES Final Result [facility] [place]# [id number] [address] [place] [address] * CERV/VAG CYTOPATH, THIN PREP IMAGR RFLX HPV (05/15/2016 2:13 PM MIXER LEVER OPERATOR) CLINICAL INFORMATION SEE COMMENT 05/28/2016 1:00 PM MIXER LEVER OPERATOR [facility] Comment:Information not prov ided LAST MENSTRUAL PERIOD SEE COMMENT 05/28/2016 1:00 PM MIXER LEVER OPERATOR [facility] Comment:Information not prov ided PREV PAP: SEE COMMENT 05/28/2016 1:00 PM MIXER LEVER OPERATOR [facility] Comment:Information not prov ided PREV BX: SEE COMMENT 05/28/2016 1:00 PM MIXER LEVER OPERATOR [facility] Comment:Information not prov ided SOURCE Endocervix 05/28/2016 1:00 PM MIXER LEVER OPERATOR [facility] ADEQUACY: SEE COMMENT 05/28/2016 1:00 PM MIXER LEVER OPERATOR [facility] Comment: Satisfactory for evaluation. Endocervical/transformation zone component present. Age and/or menstrual status not provided PAP INTERP SEE COMMENT 05/28/2016 1:00 PM MIXER LEVER OPERATOR [facility] Comment: Negative for intraepithelial lesion or malignancy. Reactive cellular changes associated with repair CYTOLOGY INFECTION SEE COMMENT 05/28 1:00 PM MIXER LEVER OPERATOR [facility] Comment: Shift in vaginal francisca suggestive of bacterial vaginosis. COMMENT SEE COMMENT 05/28/2016 1:00 PM MIXER LEVER OPERATOR [facility] Comment: This Pap test has been evaluated with computer assisted technology. PROJECT MANAGEMENT DIRECTOR: SEE COMMENT 2016 1:00 PM MIXER LEVER OPERATOR [facility] Comment: [place], CT(ASCP) CT screening location: [place] [address] [address] [place] [address] PATHOLOGIST SEE COMMENT 05/28/2016 1:00 PM MIXER LEVER OPERATOR [facility] Comment: Trent Fuller M.D., Board Certified in Anatomic Pathology and Cytopathology. (electronic signature) Genital SWAB OF ENDOCERVIX / Unknown Collection / Unknown 05/15/2016 2:13 PM MIXER LEVER OPERATOR 05/15/2016 4:23 PM MIXER LEVER OPERATOR Narrative [facility] - 05/28/2016 1:00 PM MIXER LEVER OPERATOR Performing Organization Information: Site ID: SL Name: [facility] Address: [address] [place] [address] Director: Florence Donahue MD Gaby Florez STOCKROOM SUPERVISOR PATHOLOGY/CYTOLOGY ORDERABLES Final Result [facility] from Last 3 Months or Most Recently Relevant to Health Maintenance Insurance [facility] OPTIONS PPO [id number] RX OPTUM RX Member Subscriber Plan / Payer (Ef fective 2021-Present) Name:Ruth Trimble Relation to Subscriber:Self Name:Ruth Trimble Subscriber ID:Not on file Payer ID:Not on file Type:RX Commercial Address: [address] Advance Directives For more information, please contact: [phone] * Full Code (Latest Code Status on [...] 3:33 PM 09/03/2011 1:18 AM Care Teams Computer Science Teacher Relationship Specialty Start Date End Date Nallely Echavarria MD PCP - General Family Practice 02/26/19
--- OUTSIDE RECORDS SUMMARY | 2024-09-21 21:44 | XMS_ITS | Encounter Summary ---
Author Organization [employer] Address [address] [place] [address] Care Team Providers Care Tuber Operator Name Role Phone Nallely Echavarria MD Primary Care Provider +1- [phone] Encounter Details Date Type Department Care Team (Latest Contact Info) Description 06/20/1999 Outpatient Historical [facility] Kal Sampson MD [address] [place] [id number] Closed fracture of olecranon process of ulna (Primary Dx) Social History Tobacco Use Types Packs/Day Years Used Date Smoking Tobacco: Never Assessed Comments Unknown Sex and Gender Information Value Date Recorded Sex Assigned at Not on file Legal Sex Female 4:47 AM INVESTIGATION MANAGER Gender Identity Not on file Sexual Orientation Not on file documented as of this encounter Plan of Treatment Not on file documented as of this encounter Visit Diagnoses Diagnosis Closed fracture of olecranon process of ulna- Primary documented in this encounter Care Teams Tuber Operator Relationship Specialty Start Date End Date Nallely Echavarria MD PCP - General Family Practice 02/26/19 documented as of this encounter
--- OUTSIDE RECORDS SUMMARY | 2024-09-21 21:44 | XMS_ITS | Encounter Summary ---
Author Organization [employer] Address [address] [place] [address] Care Team Providers Care Hand Outside Cutter Name Role Phone Nallely Echavarria MD Primary Care Provider +1- [phone] Encounter Details Date Type Department Care Team (Late st Contact Info) Description 06/17/2007 Outpatient Historical [facility] Er, Authorized P NO ADDRESS ON FILE Kal Sampson MD [address] [place] [id number] Social History Tobacco Use Types Packs/Day Years Used Date Smoking Tobacco: Never Assessed Comments Unknown Sex and Gender Information Value Date Recorded Sex Assigned at Not on file Legal Sex Female 4:47 AM MOVING WORKER Gender Identity Not on file Sexual Orientation Not on file documented as of this encounter Plan of Treatment Not on file documented as of this encounter Visit Diagnoses Not on filedocumented in this encounter Care Teams Hand Outside Cutter Relationship Specialty Start Date End Date Nallely Echavarria MD PCP - General Family Practice 02/26/19 documented as of this encounter
--- OUTSIDE RECORDS SUMMARY | 2024-09-21 21:44 | XMS_ITS | Encounter Summary ---
Author Organization [facility] Address [address] [place] [address] Care Team Providers Care Sport Psychologist Name Role Phone Nallely Echavarria MD Primary Care Provider +1- [phone] Reason for Visit * Reason Onset Date Comments Follow Up 02/13/2015 see note Encounter Details Date Type Department Care Team ([facility] st Contact Info) Description 02/13/2015 Telephone [place] [id number] [place] [id number] Whit Boss RN Follow Up (see [...] on file Legal Sex Female 4:47 AM MANAGER OF INFORMATION Gender Identity Not on file Sexual Orientation [...] on filedocumented in this encounter Care Teams Sport Psychologist Relationship Specialty Start Date End Date Nallely Echavarria MD PCP - General Family Practice 02/26/19 documented as of this encounter
--- NOTE | 2024-09-21 21:47 | ED.LOWEXIN ---
HPI - Extremity Injury (Lower) General Chief Complaint: Extremity Injury, Lower Stated Complaint: right leg swollen more than left, 39 weeks preg Time Seen by Provider: 09/21/24 21:38 History of Present Illness HPI Narrative: 33-year-old female that is approximately 39 weeks presenting to the emergency department for evaluation of leg swelling right worse than left. Patient was told by her OBGYN to go the emergency department to rule out a blood clot. Patient denies any pain, states that the leg swelling has come and gone over last several days. No history of blood clot. Patient has no other symptoms at this time. Has a OBGYN follow-up appointment tomorrow morning. No history of complications during this or previous pregnancies. She was otherwise in her normal state of health. No trauma or injury. Related Data Home Medications ?Medication ?Instructions ?Recorded ?Confirmed ?Last Taken ?Type doxylamine succinate 25 mg tablet 25 mg PO QHS PRN sleep 02/16/24 09/19/24 Unknown History (Unisom (doxylamine)) vitamins-iron fumarate 65 1 tablet PO DAILY 02/16/24 09/19/24 09/19/24 History mg iron-folic acid 1 mg tablet ferrous sulfate 325 mg (65 mg 325 mg PO DAILY 08/09/24 09/19/24 09/19/24 History iron) tablet Allergies Allergy/AdvReac Type Severity Reaction Status Date / Time amoxicillin (From Augmentin) Allergy Severe Vomiting Verified 09/19/24 13:40 clavulanic acid (From Allergy Severe Vomiting Verified 09/19/24 13:40 Augmentin) Review of Systems Review of Systems: As reviewed above in HPI [facility] Past Medical History Medical History Anxiety Pelvic congestive syndrome Surgical History Surgical History Hx of cholecystectomy H/O breast augmentation 2015 Family History Family History Grandparent Lung cancer ALS (amyotrophic lateral sclerosis) Social History Social History Smoking status: Never smoker Alcohol intake: former Alcohol use details: socially Substance use: never Substance use type: does not use Do You Feel Safe in your Home?: Yes Lack of Transportation: No Lack of Food: Never True Current Housing: I Have Housing Concerned About Future Housing: No Difficulty Paying Gas/Electric Bills: No Difficulty Paying for Meds: No Currently Unemployed: No Education: Associate Degree Difficulty w/ Childcare or Family Care: No Living arrangements: with family Occupation/Education: occupation Additional occupation/education comments: Pain Management Gender identity (if verbalized by the patient): Female Sexual Orientation (if Verbalized by the Patient): Straight or Heterosexual Spiritual care concerns: No Exam Narrative: GENERAL: [Well-appearing, well-nourished, and in no acute distress.] HEAD: [Normocephalic, atraumatic.] EYES: [PERRLA and EOMI.] ENT: Nares clear, no rhinorrhea or epistaxis. Mucous membranes moist. NECK: Supple. CHEST: [Clear to auscultation. No respiratory distress.] HEART: [Regular rate and rhythm]. No murmur heard. [Normal peripheral pulses.] ABDOMEN: [Soft, nondistended], [nontender], [No rigidity or guarding] EXTREMITIES: Normal range of motion. Mild pedal edema, right worse than left, no calf swelling or asymmetry. No overlying skin changes. No pitting edema. SKIN: Warm, dry, no rash. NEURO: [No focal deficits]. Alert and oriented [x3.] PSYCH: [Normal mood and affect.] Course Vital Signs Vital signs: Vital Signs Temperature 36.6 C 09/21/24 19:16 Pulse Rate 84 09/21/24 19:16 Respiratory Rate 18 09/21/24 19:16 Blood Pressure 133/87 09/21/24 19:16 Pulse Oximetry 99 09/21/24 19:16 Oxygen Delivery Room Air 09/21/24 19:16 Temperature 36.6 C 09/21/24 19:16 Pulse Rate 78 09/21/24 22:19 Respiratory Rate 20 09/21/24 22:19 Blood Pressure 114/79 09/21/24 22:19 Pulse Oximetry 99 09/21/24 22:19 Oxygen Delivery Room Air 09/21/24 19:16 MDM - Extremity Injury (Lower) MDM Narrative Medical decision making narrative: 33-year-old female who is 39 weeks . Presenting to the emergency department after contacting her OBGYN. She was concerned about some intermittent leg swelling in her ankles that has fluctuated over last 2 days coming and going. Right ankle slightly worse than left ankle, nonpitting edema. She has normal vital signs, no tachycardia, fever, hypoxia or blood pressure concerns. No problems during this or previous pregnancies. OBGYN reportedly was concerned about blood clot. Her examination is reassuring and suspicion for DVT is low. Doppler ultrasound of the bilateral lower extremities was ordered at this time. Doppler was negative for any deep venous thrombosis. Patient has an outpatient OBGYN appointment tomorrow morning and can safely be discharged with follow-up. Patient given return precautions. Medical Records Attestation: I reviewed the patient's medical records. Imaging Data Attestation: I personally reviewed and interpreted this imaging study as follows: My impression: Impressions Venous Doppler Study 09/21/24 21:15 IMPRESSION: Negative bilateral lower extremity venous US. No deep vein thrombosis. Discharge Plan Discharge Clinical Impression: Leg swelling in in third trimester Patient Disposition: Home Condition: Stable Instructions: Antibiotic Form Additional Instructions: Follow-up with your OBGYN tomorrow morning. Return with any new or worsening concerns at any time such as developing severe shortness of breath, vision changes, intractable headaches or, worsening leg swelling or any other concerns. Your DVT scan was negative for any blood clots and your vital signs are normal here. Patient Language: Indian Prescriptions: No Action ferrous sulfate 325 mg (65 mg iron) tablet 325 mg PO DAILY Unisom (doxylamine) 25 mg tablet 25 mg PO QHS PRN (Reason: sleep) vit-iron fum-folic ac 65 mg iron- 1 mg tablet 1 tablet PO DAILY Follow-up/Referrals: Tara Ho MD [Primary Care Provider] - Time of Disposition: 21:47
[2024-09-21 22:19] VITALS: BP 114/79; PULSE 78; RESP 20; O2SAT 99
== END 2024-09-21 22:20 | disposition home or self-care (01) ==
PROVIDERS: Emergency Provider Student in an Organized Health Care Education/Training Program; PCP Obstetrics & Gynecology
DX: O26.893 Other specified pregnancy related conditions, third trimester (principal); R22.43 Localized swelling, mass and lump, lower limb, bilateral; Z90.49 Acquired absence of other specified parts of digestive tract; Z3A.39 39 weeks gestation of pregnancy
CPT/HCPCS: 93970; 99284

== ENCOUNTER 2024-09-22 10:10 | Inpatient (IN) | payer OTHER, SELFPAY ==
[2024-09-22] VITALS (61 sets, daily range): BP systolic 98–135; BP diastolic 41–113; PULSE 64–99; RESP 18; TEMP 36.4–37.2; O2SAT 98–100; BMI 26.7
[2024-09-22 10:42] LABS: Basophils Absolute Auto 0.1 K/mm3 (0.0-0.1); Basophils Percent Auto 0.7 % (0.2-1.2); Eosinophils Absolute Auto 0.2 K/mm3 (0-0.3); Eosinophils Percent Auto 1.7 % (0-4.4); Hematocrit 35.8 % (37.0-47.0); Hemoglobin 11.7 g/dL (12.0-15.0); Immature Granulocyte Absolute 0.03 K/mm3 (0.00-0.031); Immature Granulocyte Percent A 0.3 % (0-0.5); Lymphocytes Absolute Auto 1.45 K/mm3 (0.9-3.2); Lymphocytes Percent Auto 13.6 % (18.3-44.2); Mean Corpuscular HGB Conc 32.7 g/dl (32-36); Mean Corpuscular Hemoglobin 29.3 pg (26-34); Mean Corpuscular Volume 89.5 fl (80-100); Mean Platelet Volume 11.8 fl (7.4-10.4); Monocytes Absolute Auto 0.9 K/mm3 (0.1-0.6); Monocytes Percent Auto 8.4 % (2.6-8.5); Neutrophils Percent Auto 75.3 % (45.5-73.1); Platelet Count Result 166 k/mm3 (150-375); White Blood Count 10.7 K/mm3 (4.5-10.0)
[2024-09-22] MEDS: LACTATED RINGERS 1,000 ML 125 ML IV CONT ×2 (10:45→11:43)
--- OUTSIDE RECORDS SUMMARY | 2024-09-22 11:01 | XMS_ITS | Clinical Summary ---
Author Organization [facility] Address [address] [place] [address] Care Team Providers Care Light Rail Signal Technician Name Role Phone Nallely Echavarria MD Primary Care Provider [phone]- [phone] Allergies Active Allergy Reactions Criticality Noted Date Comments Amoxicillin-Pot Clavulanate Nausea and Vomiting Medium 08/26/2011 Medications multivit 34-lspd-msylwe 6-dha (Prenate DHA) 28 mg iron-1 mg -300 mg Capsule Take by mouth. Active Breast Pump DeviceIndicatio ns:Lactating mother Double electric breast pump. TEJAS 04/17/21. To use indefinitely, as long as . ICD-10 Z39.1 1 Device 01/01/2021 Active docusate sodium (COLACE) 100 mg capsule Take 1 Capsule (100 mg) by mouth 2 times daily. 60 Capsule 2 04/13/2021 9:09 AM NEUROLOGY TEACHER 04/12/2021 Active Active Problems Problem Noted Date [...] - Place a vaporizer or humidifier in [facility]'s room (such as the Holganix steam vaporizer). - Elevate the head of Ruth's bed by placing an extra pillow or two under her head. - Ruth should blow her nose frequently to decrease post-nasal drainage. - Household members should avoid sharing cups and eating utensils and wash hands frequently. - Trial of Claritin D 12 hour. A rapid strep test was normal (faint positive only) at [facility]. A throat culture was sent to the [facility] lab for verification. Call for persistent fever, [...] 08/07/2011 Assessment & Plan (07/22/2011 5:40 PM NEUROLOGY TEACHER): Discussed symptomatic treatment for acute pharyngitis: - Encourage rest and fluids (try cool and soft, foods and drinks). - Salt water gargle, throat lozenges, chloraseptic spray prn. - Acetaminophen (Tylenol) or ibuprofen (Motrin, Advil) for fever or discomfort. - Place a vaporizer or humidifier in Ruth's room (such as the Holganix steam vaporizer). - Elevate the head of Ruth's bed by placing an extra pillow or two under her head. - Ruth should blow her nose frequently to decrease post-nasal drainage. - Household members should avoid sharing cups and eating utensils and wash hands frequently. May try Claritin D 12-hour BID x 7 days for symptoms. A rapid strep test was normal at [facility]. A throat culture was sent to the [facility] lab for verification. Routine or child health [...] COVID-19 VACCINE - EMERGENCY USE AUTHORIZATION, MRNA, [id number](PF) 30 MCG/0.3 ML IM SUSP 01/22/2021,01/01/2021 (TDVAX)(7 [...] on file Legal Sex Female 4:47 AM NEUROLOGY TEACHER Gender Identity Not on file Sexual Orientation Not on file Occupation Industry Job Start Date Job End Date Not on file Not on file Not on file Not on file Not on file Not on file Not on file Not on file Last Filed Vital Signs Vital Sign Reading Time Taken Comments Blood Pressure 100/62 06/03/2021 9:04 AM NEUROLOGY TEACHER Pulse 82 04/13/2021 9:02 AM NEUROLOGY TEACHER Temperature 36.9 C (98.5 F) 04/13/2021 9:02 AM NEUROLOGY TEACHER Respiratory Rate 16 06/03/2021 9:04 AM NEUROLOGY TEACHER Oxygen Saturation 97% 04/12/2021 8:15 PM NEUROLOGY TEACHER Inhaled Oxygen Concentration - - Weight 62.2 kg (137 lb 3.2 oz) 06/03/2021 9:04 A M NEUROLOGY TEACHER Height 167.6 cm (5' 6 ) 06/03/2021 9:04 AM NEUROLOGY TEACHER Body Mass Index 22.14 06/03/2021 9:04 AM NEUROLOGY TEACHER Plan of Treatment Health Maintenance Due Date [...] PAP RLFX HPV Routine 05/15/2016 2:13 PM NEUROLOGY TEACHER Encounter for well woman exam from Last 3 Months or Most Recently Relevant to Health Maintenance Results * CERV/VAG CYTO AGE BASED SCREEN PAP W CT/NG, TRICH (09/07/2020 9:09 AM CDT) CASE REPORT Gynecologic Cytology Report Case: [id number] Authorizing Provider: Laura Monroy DO Collected: 09/07/2020 09:09 AM Ordering Location: [facility] Received: 09/07/2020 03:[address] First Screen: Veronica Hope Specimen: LB PAP TP PROT, Endocervix 09/17/2020 8:29 AM CDT [facility] Market Stall Vendor Specimen Adequacy Satisfactory for evaluation, endocervical/trans formation zone component absent/insufficien t 09/17/2020 8:29 AM CDT [facility] Market Stall Vendor Interpretation Negative for intraepithelial lesion or malignancy 09/17/2020 8:29 AM CDT [facility] Verified by Veronica Hope on 09/17/2020 at 0829 CDT Market Stall Vendor Educational Note 09/17/2020 8:29 AM CDT [facility] Comment:The Pap test is a sc [...] information. EMBEDDED IMAGE 09/17/2020 8:29 AM CDT [facility] Genital SWAB OF ENDOCERVIX / Unknown Collection / Unknown 09/07/2020 9:09 AM CDT 09/07/2020 3:25 PM CDT Laura J Monroy DO PATHOLOGY/CYTOLOGY ORDERABL ES Final Result [facility] [place]# [id number] [address] [place] [address] * CERV/VAG CYTOPATH, THIN PREP IMAGR RFLX HPV (05/15/2016 2:13 PM NEUROLOGY TEACHER) CLINICAL INFORMATION SEE COMMENT 05/28/2016 1:00 PM NEUROLOGY TEACHER [facility] Comment:Information not prov ided LAST MENSTRUAL PERIOD SEE COMMENT 05/28/2016 1:00 PM NEUROLOGY TEACHER [facility] Comment:Information not prov ided PREV PAP: SEE COMMENT 05/28/2016 1:00 PM NEUROLOGY TEACHER [facility] Comment:Information not prov ided PREV BX: SEE COMMENT 05/28/2016 1:00 PM NEUROLOGY TEACHER [facility] Comment:Information not prov ided SOURCE Endocervix 05/28/2016 1:00 PM NEUROLOGY TEACHER [facility] ADEQUACY: SEE COMMENT 05/28/2016 1:00 PM NEUROLOGY TEACHER [facility] Comment: Satisfactory for evaluation. Endocervical/transformation zone component present. Age and/or menstrual status not provided PAP INTERP SEE COMMENT 05/28/2016 1:00 PM NEUROLOGY TEACHER [facility] Comment: Negative for intraepithelial lesion or malignancy. Reactive cellular changes associated with repair CYTOLOGY INFECTION SEE COMMENT 05/28 1:00 PM NEUROLOGY TEACHER [facility] Comment: Shift in vaginal francisca suggestive of bacterial vaginosis. COMMENT SEE COMMENT 05/28/2016 1:00 PM NEUROLOGY TEACHER [facility] Comment: This Pap test has been evaluated with computer assisted technology. SCALPER OPERATOR: SEE COMMENT 2016 1:00 PM NEUROLOGY TEACHER [facility] Comment: [place], CT(ASCP) CT screening location: [place] [address] [address] [place] [address] PATHOLOGIST SEE COMMENT 05/28/2016 1:00 PM NEUROLOGY TEACHER [facility] Comment: Trent Fuller M.D., Board Certified in Anatomic Pathology and Cytopathology. (electronic signature) Genital SWAB OF ENDOCERVIX / Unknown Collection / Unknown 05/15/2016 2:13 PM NEUROLOGY TEACHER 05/15/2016 4:23 PM NEUROLOGY TEACHER Narrative [facility] - 05/28/2016 1:00 PM NEUROLOGY TEACHER Performing Organization Information: Site ID: SL Name[facility] Address: [address] [place] [address] Director: Florence Donahue MD Gaby Florez WELT EDGE ROUNDER PATHOLOGY/CYTOLOGY ORDERABLES Final Result [facility] from Last 3 Months or Most Recently Relevant to Health Maintenance Insurance [facility] OPTIONS PPO [id number] [place] [address] RX OPTUM RX Member Subscriber Plan / Payer (Ef fective 2021-Present) Name:Ruth Trimble Relation to Subscriber:Self Name:Ruth Trimble Subscriber ID:Not on file Payer ID:Not on file Type:RX Commercial Address: [place] Advance Directives For more information, please contact: [phone] * Full Code (Latest Code Status on [...] 3:33 PM 09/03/2011 1:18 AM Care Teams Light Rail Signal Technician Relationship Specialty Start Date End Date Nallely Echavarria MD PCP - General Family Practice 02/26/19
--- OUTSIDE RECORDS SUMMARY | 2024-09-22 11:01 | XMS_ITS | Encounter Summary ---
Author Organization [facility] Address [address] [place] [address] Care Team Providers Care Well Shooter Name Role Phone Nallely Echavarria MD Primary Care Provider [phone]- [phone] Encounter Details Date Type Department Care Team (Latest Contact Info) Description 06/20/1999 Outpatient Historical [facility] Kal Sampson MD [address] [place] [id number] Closed fracture of olecranon process of ulna (Primary Dx) Social History Tobacco Use Types Packs/Day Years Used Date Smoking Tobacco: Never Assessed Comments Unknown Sex and Gender Information Value Date Recorded Sex Assigned at Not on file Legal Sex Female 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
--- OUTSIDE RECORDS SUMMARY | 2024-09-22 11:01 | XMS_ITS | Encounter Summary ---
Author Organization [facility] Address [address] [place] [address] Care Team Providers Care Vendor Specialist Name Role Phone Nallely Echavarria MD Primary Care Provider [phone]- [phone] Reason for Visit * Reason Onset Date Comments Follow Up 02/13/2015 see note Encounter Details Date Type Department Care Team ([facility] st Contact Info) Description 02/13/2015 Telephone [place] [id number] [place] [phone] Whit Boss RN Follow Up (see [...] on file Legal Sex Female 4:47 AM BRINE PURIFIER Gender Identity Not on file Sexual Orientation [...] on filedocumented in this encounter Care Teams Vendor Specialist Relationship Specialty Start Date End Date Nallely Echavarria MD PCP - General Family Practice 02/26/19 documented as of this encounter
--- OUTSIDE RECORDS SUMMARY | 2024-09-22 11:01 | XMS_ITS | Encounter Summary ---
Author Organization [facility] Address [address] [place] [address] Care Team Providers Care Internet Sales Representative Name Role Phone Nallley Echavarria MD Primary Care Provider [phone]- [phone] Encounter Details Date Type Department Care Team (Late st Contact Info) Description 06/17/2007 Outpatient Historical [facility] Er, Authorized P NO ADDRESS ON FILE Kal Sampson MD [address] [place] [phone] Social History Tobacco Use Types Packs/Day Years Used Date Smoking Tobacco: Never Assessed Comments Unknown Sex and Gender Information Value Date Recorded Sex Assigned at Not on file Legal Sex Female 4:47 AM ORCHESTRA CONDUCTOR Gender Identity Not on file Sexual Orientation Not on file documented as of this encounter Plan of Treatment Not on file documented as of this encounter Visit Diagnoses Not on filedocumented in this encounter Care Teams Internet Sales Representative Relationship Specialty Start Date End Date Nallely Echavarria MD PCP - General Family Practice 02/26/19 documented as of this encounter
--- OUTSIDE RECORDS SUMMARY | 2024-09-22 11:01 | XMS_ITS | Encounter Summary ---
Author Organization [facility] Address [address] [place] [address] Care Team Providers Care Development Rep Name Role Phone Nallely Echavarria MD Primary Care Provider [phone]- [phone] Encounter Details Date Type Department Care Team (Late st Contact Info) Description 01/01/2016 Lab Requisition [facility] [address] [place] [phone] Geremias White MD NO ADDRESS ON FILE Social History Tobacco Use Types Packs/Day Years Used Date Smoking Tobacco: Never Smokeless Tobacco: Never Alcohol Use Standard Drinks/Week Comments Yes 0 (1 standard drink = 0.6 oz pure alcohol) social, when goes out with friends Comments No Sex and Gender Information Value Date Recorded Sex Assigned at Not on file Legal Sex Female 4:47 AM WOOD CARVING LATHE OPERATOR Gender Identity Not on file Sexual [...] RUBEOLA IGG Positive 01/03/2016 10:44 AM CDT [facility] Comment: Results suggest response to immunization or prior exposure to the virus. REFERENCE VALUE Vaccinated: Positive (>=1.1 AI) Unvaccinated: Negative (<=0.8 AI) RUBEOLA IGG INDEX 1.2 01/03/2016 10:44 AM CDT [facility] Comment: Test Performed by: [place] [address] Call Worker Person: Jake Peters II, M.D., Ph.D. Blood specimen (specimen) 01/01/2016 11:00 AM CDT 01/01/2016 4:08 PM CDT Geremias White MD CHEMISTRY ORDERABLES F inal Result Performing Organization Address City/[facility]/ZIP Co de Phone Number [facility] * RUBELLA IGG (01/01/2016 11:00 AM CDT) RUBELLA IGG IMMUNE Immune - Positive 01/01/2016 8:07 PM CDT [facility] Blood Venipuncture - L ab Collect / Unknown 01/01/2016 11:00 AM CDT 01/01/2016 4:08 PM CDT Narrative [facility] - 01/01/2016 8:07 PM CDT A positive result suggests response to immunization or prior exposure to the virus. Geremias White MD CHEMISTRY ORDERABLES F inal Result Performing Organization Address City/[facility]/ZIP Co de Phone Number [facility] CLIA# [id number] [address] [facility] [place] [address] * MUMPS IGG ANTIBODY (01/01/2016 11:00 AM CDT) MUMPS IGG AB Positive 01/03/2016 10:44 AM CDT [facility] Comment: Results suggest response to immunization or prior exposure to the virus. REFERENCE VALUE Vaccinated: Positive (>=1.1 AI) Unvaccinated: Negative (<=0.8 AI) MUMPS IGG INDEX 1.5 01/03/2016 10:44 AM CDT [facility] Comment: Test Performed by: [place] [address] Call Worker Person: Jake Peters II, M.D., Ph.D. Blood specimen (specimen) 01/01/2016 11:00 AM CDT 01/01/2016 4:08 PM CDT us Geremias White MD CHEMISTRY ORDERABLES F inal Result [facility] * (ABNORMAL) HEPATITIS B SURFACE AB, QUANT (01/01/2016 11:00 AM CDT) Pathologist [facility] HEPATITIS B SURF AB,QN <4.0 mlU/mL 01/01/2016 6:34 PM CDT [facility] HEPATITIS B SURFACE AB INTERP Non-reacti ve(A) See Interp 01/01/2016 6:34 PM CDT [facility] Blood 01/01/2016 11:0 0 AM CDT 01/01/2016 4:08 PM CDT Narrative [facility] - 01/01/2016 6:34 PM CDT Patient does not have immunity to Hepatitis B virus. This assay is used to determine immune status to Hepatitis B as greater than or equal to 10 mIU/mL as per CDC guidelines (MMWR:vol 55: RR-16, 2006). us Geremias White MD CHEMISTRY ORDERABLES F inal Result Performing Organization Address City/State/[facility] Co de Phone Number [facility]# [id number] [address] [place] [id number] documented in this encounter Visit Diagnoses Not on filedocumented in this encounter Care Teams Development Rep Relationship Specialty Start Date End Date Nallely Echavarria MD PCP - General Family Practice 02/26/19 documented as of this encounter
--- NOTE | 2024-09-22 11:15 | LDADM ---
This patient, Ruth Macdonald, was admitted to Labor/Delivery/Recovery 108 on 09/22/24 at 10:10. Plans for labor, pain management and were discussed with patient. Patient/family oriented to hospital policies and general routines including ID bracelet, bed and alarms, visiting hours, pain management, procedures, bathroom and other care routines, personal items, smoking policy, room service/diet and guest tray routines, security routines, and visiting hours. Patient/Family are encouraged to report perceived risks to care and to ask questions if they do not understand what they are told or what they should do. See OBIX for further documentation.
--- NOTE | 2024-09-22 11:40 | WPDOBADMIT ---
Obstetrics - Admit Note Admission Note: record reviewed. No pertinent additions to the history and/or any subsequent changes in the physical findings that are not consistent with the expected course of the were found. Additions to the history and/or subsequent changes in the physical findings follow. None. Presented in active labor; @ 39.1wks cervix /-1. FHTs: cat 1 GBS neg pt desires epidural
[2024-09-22 11:56] LABS: Syphilis IgG/IgM Antibody Negative (Negative)
[2024-09-22 11:57] LABS: HIV 1/2 Ab P24 Ag Result Negative (Negative)
--- NOTE | 2024-09-22 12:01 | PM.OBPNLAB ---
Pain Control Date/time seen: 09/22/24 12:01 Pain control: epidural Pelvic Exam Dilation (cm): 7 Effacement (%): 90 station: -1 Amniotic membrane status: Ruptured (AROM, thin mec 1155) Contractions Monitor mode: External Contraction pattern: Irregular Status status: Category l Assessment and Plan Assessment: active labor Plan: begin patient augmentation (low dose pit)
[2024-09-22] MEDS: OXYTOCIN 30 UNITS/NS 500 ML 30 UNITS/500 ML BAG IV CONT (12:13)
--- NOTE | 2024-09-22 13:20 | P.PNAN_ITS ---
Anes - Eval Pre Procedure Procedure: Labor epidural Date/Time: 09/22/24 13:20 Surgeon: Vic Preop Diagnosis: Pain during labor Pre Op Diagnosis: Labor Patient Data Age: 33 Gender: F Height: 1.65 m Weight: 73 kg Last Vital Signs Temp 36.9 C 09/22/24 10:45 Pulse 83 09/22/24 13:16 BP 112/61 09/22/24 13:16 Pulse Ox 100 09/22/24 12:51 Allergies Allergy/AdvReac Type Severity Reaction Status Date / Time amoxicillin (From Augmentin) Allergy Severe Vomiting Verified 09/22/24 11:20 clavulanic acid (From Allergy Severe Vomiting Verified 09/22/24 11:20 Augmentin) Home Medications ?Medication ?Instructions ?Recorded ?Confirmed ?Type doxylamine succinate 25 mg tablet 25 mg PO QHS PRN sleep 02/16/24 09/22/24 History (Unisom (doxylamine)) vitamins-iron fumarate 65 1 tablet PO DAILY 02/16/24 09/22/24 History mg iron-folic acid 1 mg tablet ferrous sulfate 325 mg (65 mg 325 mg PO DAILY 08/09/24 09/22/24 History iron) tablet Laboratory Tests 09/22/24 10:22 WBC 10.7 H K/mm3 (4.5-10.0) RBC 4.00 L M/mm3 (4.2-5.4) Hgb 11.7 L g/dL (12.0-15.0) Hct 35.8 L % (37.0-47.0) MCV 89.5 fl (80-100) MCH 29.3 pg (26-34) MCHC 32.7 g/dl (32-36) RDW 13.0 % (11.5-14.5) Plt Count 166 k/mm3 (150-375) MPV 11.8 H fl (7.4-10.4) Immature Gran % (Auto) 0.3 % (0-0.5) Neut % (Auto) 75.3 H % (45.5-73.1) Lymph % (Auto) 13.6 L % (18.3-44.2) Bulloch % (Auto) 8.4 % (2.6-8.5) Eos % (Auto) 1.7 % (0-4.4) Baso % (Auto) 0.7 % (0.2-1.2) Lymph # (Auto) 1.45 K/mm3 (0.9-3.2) Bulloch # (Auto) 0.9 H K/mm3 (0.1-0.6) Eos # (Auto) 0.2 K/mm3 (0-0.3) Baso # (Auto) 0.1 K/mm3 (0.0-0.1) Abs Immat Gran (auto) 0.03 K/mm3 (0.00-0.031) Absolute Neuts (auto) 8.0 H K/mm3 (1.3-6.7) Absolute Nucleated RBC 0.000 K/mm3 (0.0-0.012) Nucleated RBC % 0.0 % (0.0-0.2) Syphilis IgG/IgM Ab Negative (Negative) HIV 1&2 Ab/P24 Ag 4thGn Negative (Negative) Blood Type O Positive Antibody Screen Negative Patient hx anesthesia problems: none Family hx anesthesia problems: none Results Review: All pre-operative results and documents have been reviewed as part of the pre- operative evaluation. [facility] Past Medical History Medical History Anxiety Pelvic congestive syndrome Surgical History Surgical History Hx of cholecystectomy H/O breast augmentation 2016 Family History Family History Grandparent Lung cancer ALS (amyotrophic lateral sclerosis) Social History Social History Smoking status: Former smoker Second hand tobacco smoke exposure: No Alcohol intake: former Alcohol use details: socially Substance use: never Substance use type: does not use Do You Feel Safe in your Home?: Yes Lack of Transportation: No Lack of Food: Never True Current Housing: I Have Housing Concerned About Future Housing: No Difficulty Paying Gas/Electric Bills: No Difficulty Paying for Meds: No Currently Unemployed: No Education: Associate Degree Difficulty w/ Childcare or Family Care: No Living arrangements: with family Occupation/Education: occupation Additional occupation/education comments: Pain Management Gender identity (if verbalized by the patient): Female Sexual Orientation (if Verbalized by the Patient): Straight or Heterosexual Spiritual care concerns: No Exam Day of Procedure 09/22/24 13:20 Patient weight: normal Heart: regular rate and rhythm Lungs: clear to auscultation Airway: Mallampati scale Neurological: alert and oriented
--- NOTE | 2024-09-22 13:25 | PM.OBPRVD ---
OB - Vaginal Delivery Note Procedure Delivery date: 09/22/24 Delivery augmentation: Rupture of Membranes and Pitocin (2mU) Delivery monitor: External FHT and External Uterine Route of delivery: vacuum extraction (pull x1) Indication for instrumentation: nonreassuring FHR tracing Episiotomy description: None Laceration Description: None Quantitative Blood Loss (ml): 100 Anesthesia type: Epidural Disposition: Floor Complications: No immediate complications [place] Baby Date of : 09/22/24 Time of : 13:02 Gestational Age by Date: 39 (.1) Infant gender: Female presentation: vertex position: Left Occiput Anterior Placenta delivery description: Expressed Cord Vessel Description: 3 Vessels and Delayed Cord Clamping score one minute: 8 score five minutes: 9 Narrative: Ruth rapidly progressed to complete dilation with strong desire to push. She began pushing with good maternal effort, however heart tones dropped into the 70-80s. She continued pushing but without a contraction no descensus was noted. I counseled her on need for vacuum assisted vaginal delivery as baby had been in the 70s for approximately 5 minutes. With the next contraction the vacuum suction was applied and with 1 pull, the head delivered without complication. She easily delivered the 's shoulders and body. The was immediately placed skin to skin and was stimulated by the pediatric team, where her mouth and nose where bulb suctioned and spontaneous cry was heard. Delayed cord clamping was performed. The umbilical cord was then doubly clamped and cut. A segment of the cord was collected for cord gases. The remaining cord blood was collected for typing. With Pitocin running and gentle downward traction on the cord, the placenta delivered without complication. Bimanual massage was performed and good uterine tone with minimal bleeding was noted. She was examined and no lacerations were identified. Her uterus remained firm with minimal bleeding. Sponge, lap, instrument, and needle counts were correct at the end the procedure. Mom and baby were left bonding in the birthing suite in stable condition.
[2024-09-22] MEDS: OXYTOCIN 30 UNITS/NS 500 ML 30 UNITS/500 ML BAG 125 UNITS IV CONT (13:41)
[2024-09-22] MEDS: ONDANSETRON INJ 4 MG/2 ML VIAL IV PUSH (14:24)
--- NOTE | 2024-09-22 18:59 | OBPPTRN ---
1656-Patient transferred to post room #288 via wheelchair. Support person present. Oriented to unit, room, information board, rooming in, admission packet and security measures. Patient verbalizes understanding.
[2024-09-22] MEDS: ACETAMINOPHEN 325 MG TABLET 650 MG PO (20:09)
[2024-09-23] MEDS: IBUPROFEN 600 MG TABLET PO ×2 (02:14→13:41)
[2024-09-23 03:40] VITALS: BP 107/74; PULSE 81; RESP 14; TEMP 36.7; O2SAT 100
[2024-09-23 05:19] LABS: Basophils Absolute Auto 0.1 K/mm3 (0.0-0.1); Basophils Percent Auto 0.5 % (0.2-1.2); Eosinophils Absolute Auto 0.2 K/mm3 (0-0.3); Eosinophils Percent Auto 2.2 % (0-4.4); Hematocrit 32.9 % (37.0-47.0); Hemoglobin 10.7 g/dL (12.0-15.0); Immature Granulocyte Absolute 0.04 K/mm3 (0.00-0.031); Immature Granulocyte Percent A 0.4 % (0-0.5); Lymphocytes Absolute Auto 1.58 K/mm3 (0.9-3.2); Lymphocytes Percent Auto 14.2 % (18.3-44.2); Mean Corpuscular HGB Conc 32.5 g/dl (32-36); Mean Corpuscular Hemoglobin 29.6 pg (26-34); Mean Corpuscular Volume 90.9 fl (80-100); Mean Platelet Volume 11.7 fl (7.4-10.4); Monocytes Absolute Auto 0.9 K/mm3 (0.1-0.6); Monocytes Percent Auto 7.8 % (2.6-8.5); Neutrophils Absolute Auto 8.4 K/mm3 (1.3-6.7); Neutrophils Percent Auto 74.9 % (45.5-73.1); Platelet Count Result 128 k/mm3 (150-375); Red Blood Count 3.62 M/mm3 (4.2-5.4); Red Cell Distribution Width 12.8 % (11.5-14.5); White Blood Count 11.1 K/mm3 (4.5-10.0)
[2024-09-23 08:00] VITALS: PULSE 78; RESP 18; O2SAT 98
[2024-09-23 08:20] VITALS: BP 111/69; PULSE 78; RESP 18; TEMP 36.4; O2SAT 98
[2024-09-23] MEDS: MULTIVIT/MIN/PREN/FOL AC/IRON TABLET 1 TAB PO (08:44)
--- NOTE | 2024-09-23 09:25 | WPDANLDPN2 ---
Anes-Prog Note L&D Date/Time: 09/23/24 09:25 Comfortable throughout: labor and delivery Neuraxial method: epidural Epidural/Spinal procedure site: clean & non-tender Neuro status: Neuro function grossly intact. Cardiovascular status: normal Respiratory status: normal Airway patency: baseline Mental status: baseline Post-Op hydration status: normal Vital Signs: Last Vital Signs Temp 36.7 C 09/23/24 03:40 Pulse 81 09/23/24 03:40 Resp 14 09/23/24 03:40 BP 107/74 09/23/24 03:40 Pulse Ox 100 09/23/24 03:40 O2 Del Method Room Air 09/22/24 20:00 Pain score (VAS): 0/10 Post-procedural complaints: none Patient feedback: Patient satisfied with anesthetic care.
--- NOTE | 2024-09-23 11:56 | P.DS_ITS ---
DS: Admitting Diagnosis Discharge Date 09/23/2024 Admitting Diagnosis jpregnancy DS: Discharge Diagnosis Discharge Diagnosis (1) , delivered: Code(s): O80 - Encounter for full-term uncomplicated delivery Status: Acute OB - DS: Summary OB Procedures : None OB Procedures Intrapartum: Vacuum extraction OB Procedures: : None Peripartum Data Laceration Description: None Episiotomy description: None Time Spent with Patient Time attestation: Total time spent providing and/or coordinating discharge services: DS: Data Data Completed and Pending Pending studies at discharge: Pending at discharge 09/23/24 11:03 Surgical [PTH] Routine Labs on day of discharge: Labs from last 24 hours 09/23/24 09/22/24 05:06 10:22 WBC 11.1 H RBC 3.62 L Hgb 10.7 L Hct 32.9 L MCV 90.9 MCH 29.6 MCHC 32.5 RDW 12.8 Plt Count 128 L MPV 11.7 H Immature Gran % (Auto) 0.4 Neut % (Auto) 74.9 H Lymph % (Auto) 14.2 L [place] % (Auto) 7.8 Eos % (Auto) 2.2 Baso % (Auto) 0.5 Lymph # (Auto) 1.58 [place] # (Auto) 0.9 H Eos # (Auto) 0.2 Baso # (Auto) 0.1 Abs Immat Gran (auto) 0.04 H Absolute Neuts (auto) 8.4 H Absolute Nucleated RBC 0.000 Nucleated RBC % 0.0 % Immature Plt Fraction 9.0 Syphilis IgG/IgM Ab Negative HIV 1&2 Ab/P24 Ag 4thGn Negative Discharge Plan Discharge Discharging Clinician: Otoniel Conway Patient Disposition: Home Activity: may shower, follow weight bearing status and pelvic rest Diet: as tolerated Patient Instructions: Antibiotic Form Patient Language: Frisian Stand Alone Forms: General Discharge Information Follow-up/Referrals: Tara Ho MD [Physician] - 4 Weeks Discharge Medications: No Action ferrous sulfate 325 mg (65 mg iron) tablet 325 mg PO DAILY Unisom (doxylamine) 25 mg tablet 25 mg PO QHS PRN (Reason: sleep) vit-iron fum-folic ac 65 mg iron- 1 mg tablet 1 tablet PO DAILY Date of admission: 09/22/24 10:10 Primary Care Provider: UNKNOWN,DOCTOR Admitting Provider: Tara Ho Attending physician on admission: Tara Ho Condition: Stable
--- NOTE | 2024-09-23 12:20 | PC.NURSE ---
Consulted with mother concerning needs and she shared her ability to independently latch infant optimally without pain. She latched baby to the right breast in cradle hold. The latch is a little shallow but mom states that she is a little sore but that it is not painful. She breastfed her other 2 children. Mother is feeding appropriately for growth of infant and understands stimulating to eat if needed. has had appropriate feedings in the last 24 hours meets the outcomes for weight, output, blood sugar and jaundice at this time. Reinforced understanding of milk production, transition of milk, signs of adequate intake, transition of stool, prevention/relief of engorgement, plugged ducts, mastitis, community resources, and when to call a provider using the resource of the feeding sheet along with the mom and baby guide. She has a breast pump at home. Mother voiced understanding of the information shared, is confident to continue effectively her infant at home, when to call for assistance, denies any additional assistance or education at this time. Reported to the Primary RN.
[2024-09-23 12:35] VITALS: BP 110/61; PULSE 74; RESP 16; TEMP 36.9; O2SAT 95
== END 2024-09-23 19:32 | disposition home or self-care (01) | DRG 807 ==
LOC: ANHLDR 10:22 → ANHOB2 17:01
PROVIDERS: Obstetrics & Gynecology; Admitting Provider Obstetrics & Gynecology; Visit Provider Obstetrics & Gynecology
DX: O76 Abnormality in fetal heart rate and rhythm complicating labor and delivery (principal); Z37.0 Single live birth; O77.0 Labor and delivery complicated by meconium in amniotic fluid; Z3A.39 39 weeks gestation of pregnancy
CPT/HCPCS: 36415; 85025; 85055; 86593; 86703; 86850; 86900; 86901; 88307; A9270; G0432; J2405; J2590; J2795; J7120